=== PATIENT | female | born 1990 | race Caucasian/White ===

== ENCOUNTER 2017-05-20 18:17 | Emergency (ER) | payer MEDICAID, OTHER ==
[~2017-05-20] VITALS: Ht 172.7 cm; Wt 101.6 kg
[~2017-05-20 18:17] MED LIST: ALBU8.5H8 INH; AZIT250T89 PO; CEFD300C37 PO; LEVO750T26 PO; METH4TAB2 PO
[2017-05-20 18:18] VITALS: BP 129/86
== END 2017-05-20 20:53 | disposition home or self-care (01) ==
LOC: ED 20:47
DX: B34.9 Viral infection, unspecified (principal); I10 Essential (primary) hypertension; F17.210 Nicotine dependence, cigarettes, uncomplicated
CPT/HCPCS: 71020; 99284

== ENCOUNTER 2017-08-13 09:17 | Emergency (ER) | payer SELFPAY ==
[~2017-08-13] VITALS: Ht 170.2 cm; Wt 103.3 kg
[2017-08-13 09:18] VITALS: BP 126/83
[2017-08-13] MEDS ORDERED: FAMOTIDINE 20 MG TABLET ONE (09:50)
[2017-08-13] MEDS ORDERED: FAMOTIDINE 20 MG TABLET PO ONE (10:00)
== END 2017-08-13 09:57 | disposition home or self-care (01) ==
LOC: ED 09:45
DX: L50.9 Urticaria, unspecified (principal); I10 Essential (primary) hypertension
CPT/HCPCS: 99283; J7512

== ENCOUNTER 2017-08-20 10:12 | Emergency (ER) | payer SELFPAY ==
[~2017-08-20] VITALS: Ht 172.7 cm; Wt 102.0 kg
[2017-08-20 12:23] VITALS: BP 128/76
== END 2017-08-20 12:25 | disposition home or self-care (01) ==
LOC: ED 11:08
DX: L50.9 Urticaria, unspecified (principal); M06.9 Rheumatoid arthritis, unspecified; Z87.01 Personal history of pneumonia (recurrent)
CPT/HCPCS: 99283; J7512

== ENCOUNTER 2019-11-03 09:52 | Emergency (ER) | payer SELFPAY ==
[~2019-11-03] VITALS: Ht 170.2 cm; Wt 108.5 kg
[2019-11-03 09:53] VITALS: BP 138/75
--- NOTE | 2019-11-03 10:06 | NUR ---
pt ambulated with a steady gait. In with C/O shortness of breath that causes panic attacks.
--- NOTE | 2019-11-03 10:52 | NUR ---
Patient given discharge instructions and they have confirmed that they understand the instructions. pt verbalized understanding to fill medications as ordered. Patient ambulatory with steady gait.
== END 2019-11-03 11:46 | disposition home or self-care (01) ==
LOC: ED 11:40
DX: B34.9 Viral infection, unspecified (principal)
CPT/HCPCS: 71046; 93005; 99283